=== PATIENT | female | born 1995 | race African-American/Black ===

== ENCOUNTER 2018-05-08 13:26 | Emergency (ER) | payer SELFPAY ==
[2018-05-08 13:41] VITALS: BP 140/79; PULSE 79; TEMP 98; BMI 21.7
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
[2018-05-08] MEDS ORDERED: KETOROLAC TROMETHAMINE 60 MG/2 ML VIAL IM ONE (16:15)
[2018-05-08] MEDS ORDERED: KETOROLAC TROMETHAMINE 60 MG/2 ML VIAL ONE (16:23)
== END 2018-05-08 16:30 | disposition home or self-care (01) ==
LOC: JERFT 13:26
PROC: 3E0233Z Introduction of Anti-inflammatory into Muscle, Percutaneous Approach (ICD-10-PCS; principal; 2018-05-08)
DX: S00.03XA Contusion of scalp, initial encounter (principal); S16.1XXA Strain of muscle, fascia and tendon at neck level, initial encounter; Y04.2XXA Assault by strike against or bumped into by another person, initial encounter; Y93.9 Activity, unspecified; Y92.9 Unspecified place or not applicable
CPT/HCPCS: 70450-TC; 72050-TC-FY; 99281-25

== ENCOUNTER 2019-06-23 03:30 | Inpatient (IN) | payer OTHER ==
[2019-06-23] MEDS ORDERED: ELECTROLYTE-148 SOLN 1,000 ML IV SCH ×2 (04:00→15:00)
[2019-06-23] MEDS ORDERED: PROMETHAZINE HCL 25 MG/1 ML VIAL IVPB ONE ×2 (06:11→11:30)
[2019-06-23] MEDS ORDERED: BUTORPHANOL TARTRATE 1 MG/ML VIAL IVPB ONE (06:11)
--- NOTE | 2019-06-23 06:20 | HP ---
Past Medical History - Primary Care Physician PCP:: Marga Gan - Admission Chief Complaint: 23 yrs , 40.6 weeks admitted in labor,onset LP since 2.00AM. History of Present Illness: PNC at [facility] . wt gain 55 lbs panel : A , RH not documented , , hbsag neg, rubella, pos, , quantiferon neg, , rpr nr , gc/ct neg , 1 hr gtt 100 ,, hiv neg 36 weeks cultures : gbs neg, gc/ct neg urine drug toxicity neg us by MFM , NT Screen & AFP neg . Corrected EDC by sono given as 06/17/2019 serial us done for growth . 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 No: GERD Hepatobiliary: No: Hepatitis B Renal/: No: UTI ...: 6 ...Para: 0 ...Spon : 1 ...Induced : 4 ...LMP: 08/19/18 ...EDC by Dates: 05/26/19 (Mistaken dates ) ...EDC by Sono: 06/17/19 (40.6 weeks by sono ) Heme/Onc: No: Anemia Infectious Disease: Yes: STD's (h/o chlamydia in past treated, during pregn neg , ,last checked 05/25/19). No: AIDS, HIV, Tuberculosis Psych: Yes: Anxiety, Other (h/o ADHD in past , received ssi , , no meds currently during h/o paranoia . pt was referred to [facility]) Endocrine: No: [place]'s Disease, Rohit's Disease, Diabetes Insipidus, Diabetes Mellitus, Hyperparathyroidism, Hyperthyroidism, Hypothyroidism, Osteopenia, SIADH, Other - Past Surgical History Past Surgical History: Yes: None Hx Myomectomy: No Hx Transabdominal Cerclage: No - Smoking History Smoking history: Former smoker Have you smoked in the past 12 months: Yes Aproximately how many cigarettes per day: 8 (quit during preg ) - Alcohol/Substance Use Hx Alcohol Use: No History of Substance Use: reports: Marijuana (quit before ) Home Medications - Allergies Allergies/Adverse Reactions: Allergies Allergy/AdvReac Type Severity Reaction Status Date / Time shellfish derived Allergy Severe Difficulty Verified 06/23/19 08:30 Breathing shrimp Allergy Severe Difficulty Verified 06/23/19 08:30 Breathing - Home Medications Home Medications: Ambulatory Orders Tablet 1 tab PO DAILY 06/23/19 Physical Exam - Maternity Vital Signs: Selected Entries 06/23/19 05:28 Temperature 98 F Pulse Rate 73 Blood Pressure 134/79 Weight 168 lb Constitutional: Yes: Well Nourished, Moderate Distress, Obese Eyes: Yes: WNL HENT: Yes: WNL, Normocephalic Neck: Yes: WNL Cardiovascular: Yes: WNL, Regular Rate and Rhythm Lungs: Clear to auscultation Breast(s): Yes: WNL - Abdominal Exam/OB Fundal Height: 40 Number of Fetuses: Single Presentation: Vertex Contractions: Yes Regularity: Regular (q3-4 min) Intensity: Mod/Strong Monitor Mode: External Heart Rate (range): 140 Heart Rate Location: [facility] Category: I Accelerations: Uniform Decelerations: None - Vaginal Exam/OB Vaginal Bleediing: No Speculum Exam: No Dilatation (cm): 5 Effacement (%): 90 Amniotic Membrane Status: Intact Presentation: Vertex/Position Station: -2 (-2/-1) - Physical Exam Musculoskeletal: Yes: WNL Extremities: No: Calf Tenderness Edema: LLE: 1+, RLE: 1+ Integumentary: Yes: Tattoos Deep Tendon Reflex Grade: Normal +2 ...Motor Strength: WNL Psychiatric: Yes: WNL, Alert, Oriented - Labs Lab Results: Laboratory Tests 06/23/19 06/23/19 06/23/19 05:00 05:00 05:00 WBC 11.8 H Hgb 13.3 Hct 38.2 Plt Count 200 PT with INR 10.90 INR 0.92 PTT (Actin FS) 27.5 Sodium 139 Potassium 3.8 Chloride 107 Carbon Dioxide 22 Anion Gap 10 BUN 6.8 L Creatinine 0.5 L Random Glucose 97 Calcium 8.5 Urine Protein Urine Blood Opiates Screen Methadone Screen Barbiturate Screen Phencyclidine Screen Ur Amphetamines Screen MDMA (Ecstasy) Screen Benzodiazepines Screen Cocaine Screen U Marijuana (THC) Screen HIV 1&2 Antibody Screen HIV P24 Antigen Blood Type Antibody Screen 06/23/19 06/23/19 06/23/19 05:00 05:00 07:35 WBC Hgb Hct Plt Count PT with INR INR PTT (Actin FS) Sodium Potassium Chloride Carbon Dioxide Anion Gap BUN Creatinine Random Glucose Calcium Urine Protein Urine Blood Opiates Screen Negative Methadone Screen Negative Barbiturate Screen Negative Phencyclidine Screen Negative Ur Amphetamines Screen Negative MDMA (Ecstasy) Screen Negative Benzodiazepines Screen Negative Cocaine Screen Negative U Marijuana (THC) Screen Negative HIV 1&2 Antibody Screen Negative HIV P24 Antigen Negative Blood Type A POSITIVE Antibody Screen Negative 06/23/19 07:35 WBC Hgb Hct Plt Count PT with INR INR PTT (Actin FS) Sodium Potassium Chloride Carbon Dioxide Anion Gap BUN Creatinine Random Glucose Calcium Urine Protein 1+ H Urine Blood 3+ H Opiates Screen Methadone Screen Barbiturate Screen Phencyclidine Screen Ur Amphetamines Screen MDMA (Ecstasy) Screen Benzodiazepines Screen Cocaine Screen U Marijuana (THC) Screen HIV 1&2 Antibody Screen HIV P24 Antigen Blood Type Antibody Screen Problem List - Problems (1) Post term over 40 weeks Code(s): O48.0 - POST-TERM (2) Labor established Code(s): [id number] - Assessment/Plan 23 yrs , 40.6 wks, gbs neg , in active labor Plan stadol + phnrgan for labor analgesia trial vaginal delivery
[2019-06-23 06:23] VITALS: BMI 33.9
[2019-06-23] MEDS ORDERED: DEXTROSE 5%-LACTATED RINGERS 1,000 ML IV SCH (06:30)
[2019-06-23 06:38] LABS: BASO % 0.3 % (0-2.0); EOS % 0.7 % (0-4.5); HEMATOCRIT 38.2 % (32.4-45.2); HEMOGLOBIN 13.3 GM/dL (10.7-15.3); LYMPH % 19.3 % (8-40); MCH 32.4 pg (25.7-33.7); MCHC 34.7 g/dl (32.0-36.0); MEAN CELL VOLUME 93.2 fl (80-96); MEAN PLT VOLUME 8.5 fl (7.5-11.1); MONO % 6.2 % (3.8-10.2); NEUT % 73.5 % (42.8-82.8); PLATELET COUNT 200 K/MM3 (134-434); RDW 13.8 % (11.6-15.6); WHITE BLOOD COUNT 11.8 K/mm3 (4.0-10.0)
[2019-06-23 06:53] LABS: INR 0.92 (0.83-1.09); PROTHROMBIN TIME (PATIENT) 10.9 SEC (9.7-13.0)
[2019-06-23 06:55] LABS: ACTIVATED PTT 27.5 SECONDS (25.2-36.5)
[2019-06-23 07:00] LABS: BLOOD UREA NITROGEN 6.8 mg/dL (7-18); CALCIUM 8.5 mg/dL (8.5-10.1); CREATININE 0.5 mg/dL (0.55-1.3); POTASSIUM 3.8 mmol/L (3.5-5.1)
[2019-06-23] MEDS ORDERED: BUTORPHANOL TARTRATE 1 MG/ML VIAL ONE ×3 (07:43→11:26)
[2019-06-23] MEDS ORDERED: PROMETHAZINE HCL 25 MG/1 ML VIAL ONE ×2 (07:43→11:26)
[2019-06-23] MEDS ORDERED: OXYTOCIN 30 UNITS in 0.9% NS 30 UNIT/500 ML INFUS.BAG IVPB SCH (08:45)
[2019-06-23 08:59] LABS: EPI CELLS 6.5 /HPF (0-5/HPF); HYALINE CASTS 19 /lpf (0-8); PH,URINE 6.5 (5.0-8.0); URINE APPEARANCE CLEAR; URINE BACTERIA 19.1 /hpf (NEGATIVE); URINE BILIRUBIN NEGATIVE (NEGATIVE); URINE COLOR YELLOW; URINE GLUCOSE (UA) NEGATIVE (NEGATIVE); URINE KETONE TRACE (NEGATIVE); URINE LEUK ESTERASE NEGATIVE (NEGATIVE); URINE NITRITE NEGATIVE (NEGATIVE); URINE PROTEIN 1+ (NEGATIVE); URINE UROBILINOGEN 0.2 mg/dL (0.2-1.0); URINE WBC 3 /hpf (0-5)
[2019-06-23 09:05] LABS: COCAINE, UR NEGATIVE ng/ml (CUTOFF=300); METHADONE, UR NEGATIVE ng/ml (CUTOFF=300); OPIATES, URI NEGATIVE ng/ml (CUTOFF=300); PHENCYCLIDINE,URINE NEGATIVE ng/ml (CUTOFF=25); URINE AMPHETAMINES NEGATIVE ng/ml (CUTOFF=500); URINE BARBITURATES NEGATIVE ng/ml (CUTOFF=200); URINE BENZODIAZEPINES NEGATIVE ng/ml (CUTOFF=200)
--- NOTE | 2019-06-23 09:29 | PN ---
Progress Note, Labor Vaginal Exam #1 Labor Exam Date: 06/23/19 Labor Exam Time: 09:15 Heart Rate (range): 140 Dilatation: 7 Effacement (%): 90 Amniotic Membrane Status: Ruptured (AROM , clear, moderate) Presentation: Vertex/Position Station: -1 (-1/0) Remarks: FHR cat-1 . UC q2-4 min 7.47 AM Stadol 2mg + Phenrgan 25 mg iv 8.45 AM Pitocin augmentation started Selected Entries 06/23/19 09:06 Temperature 98.1 F Pulse Rate 81 Blood Pressure 143/70 Vaginal Exam #2 Labor Exam Date: 06/23/19 Labor Exam Time: 10:30 Heart Rate (range): 140 Dilatation: 7-8 Effacement (%): 100 Amniotic Membrane Status: Ruptured Presentation: Vertex/Position Station: +1 Remarks: fhr cat-1, sometimes variable decel are noted, change of position decels are not seen UC 3 pt c/o rectal pressure pt is refrained from pushing 11.30 AM pt requesting more pain meds rx Stadol 1mg +Phenrgan 25 mg iv stat given Selected Entries 06/23/19 10:00 Temperature 98.0 F Pulse Rate 95 H Blood Pressure 135/75 Vaginal Exam #3 Labor Exam Date: 06/23/19 Labor Exam Time: 12:30 Heart Rate (range): 130 Dilatation: antlip Effacement (%): 100 Amniotic Membrane Status: Ruptured Presentation: Vertex/Position Station: +2 Remarks: fhr , loss of contact, sometimes down to 90 -100 bpm , cat-2 , position changed to rt lat position uc q 3 min pt refrained from pushing Vaginal Exam #4 Labor Exam Date: 06/23/19 Labor Exam Time: 13:10 Heart Rate (range): 140 Dilatation: 10 Effacement (%): 100 Amniotic Membrane Status: Ruptured Station: +2 (caput & mouding) Remarks: fhr cat -1, , loss of contact, [place]hr [id number], cat2 uc 2-3 min pt pushing, efforts ineffective plan : pt refrained from pushing await spontaneous descent , before encouraging to push since ext monitor, fhr loss of contact with pt moving 1.26 PM scalp electrode placed Vaginal Exam #5 Labor Exam Date: 06/23/19 Labor Exam Time: 14:45 Heart Rate (range): 130 Dilatation: 10 Effacement (%): 100 Amniotic Membrane Status: Ruptured Station: +2 (caput large, moulding) Remarks: FHR cat-1 , UC q 2 min In spite of effective pushing for >90 min , no more descent of vx is noted , capuut larger & moulding i is noted vulva & vagina swollen , , vagina very friable ,bleeding on touch Selected Entries 06/23/19 13:55 Temperature 98.0 F Pulse Rate 114 H Blood Pressure 140/83 Imp : secondary arrest of descent ( Failure to progress) Plan stop trial of labor delivery by primary LFTC/section
[2019-06-23] MEDS ORDERED: OXYTOCIN 20 UNITS in 0.9% NS 20 UNIT/1,000 ML INFUS.BAG IV ONE (10:15)
[2019-06-23 10:16] LABS: URINE RBC 60 /hpf (0-4)
[2019-06-23] MEDS ORDERED: BUTORPHANOL TARTRATE 1 MG/ML VIAL IVPUSH ONE (11:28)
[2019-06-23] MEDS ORDERED: CITRIC ACID/SODIUM CITRATE 30 ML UNIT-DOSE CUP PO ONE (14:57)
[2019-06-23] MEDS ORDERED: morphine SULFATE/PF 0.5 MG/ML (2cc Syringe - QUVA) ONE (16:11)
[2019-06-23] MEDS ORDERED: ceFAZolin SODIUM 1 GM VIAL ONE (16:24)
[2019-06-23] MEDS ORDERED: ONDANSETRON 4 MG/2 ML VIAL IVPUSH PRN (17:36)
--- NOTE | 2019-06-23 17:37 | OP ---
Operative Note - Note: Operative Date: 06/23/19 Pre-Operative Diagnosis: , 40 .6 weeks , failure of descent (failure to progress ) Operation: Primary Low Flap Transverse C/section Findings: 4.36 PM , Baby Boy, 9/9 , ROP position , Wt 7'3" , Ht 19 "' Meconium stained fluid Both tubes & ovaries normal Laborer [employer] Dr Morel in the OR Surgeon: Marga Gan Director Of Nuclear Medicine: Marianna Armstrong Anesthesiologist/AUTOMATIC OPERATOR: Lux Scott Anesthesia: Spinal Specimens Removed: cord segment for cord gas. cord blood. placenta Estimated Blood Loss (mls): 500 Drains, Volume Out (mls): 150 (guerda color, mendez out put ) Fluid Volume Replaced (mls): 1,300 (iv ancef 2gm ) Operative Report Dictated: Yes
[2019-06-23] MEDS ORDERED: METHYLERGONOVINE MALEATE 0.2 MG/1 ML AMP IM PRN (17:46)
[2019-06-23] MEDS ORDERED: IBUPROFEN 800 MG/8 ML IJ IVPB PRN (17:46)
[2019-06-23] MEDS ORDERED: oxyCODONE HCL 5 MG TABLET PO PRN (17:46)
--- NOTE | 2019-06-23 17:58 | PN ---
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
[2019-06-23] MEDS ORDERED: OXYTOCIN 20 UNITS in 0.9% NS 20 UNIT/1,000 ML INFUS.BAG IV SCH (18:00)
--- NOTE | 2019-06-23 18:15 | OP ---
DATE OF OPERATION: 06/23/2019 PREOPERATIVE DIAGNOSES: 40.6 weeks, failure of progress. OPERATION DONE: Primary low flap transverse section. SURGEON: Marga Gan MD DEPUTY SHERIFF LIEUTENANT: Marianna Armstrong MD ANESTHESIOLOGIST: Lux Scott MD ANESTHESIA: Spinal. FINDINGS: This is a 23-year-old 6, para 0-0-5-0 who is 40.6 weeks' gestation who was admitted in labor. She was fully dilated and pushing for more than 2 hours, and there was no more descent noted beyond 2+ station. Large caput & moulding kept increasing. Vulva and vagina were also getting edematous, and vagina was very friable & bleeding on touch ,so it was decided to abandon trial of labor and delivery by section. DESCRIPTION OF PROCEDURE: Patient is taken to the operating room table, and before that, abdomen was shaved, prepped. Spear catheter was placed, and SCD stockings were given. She was taken to the operating room table, and spinal anesthesia was given. She was placed in supine position. Abdomen was painted and draped in the usual manner. Pfannenstiel incision was made in skin, subcutaneous tissue. Anterior rectus sheath was incised transversely. Bleeding points were clamped and cauterized. Rectus muscles were from the rectus sheath and then peritoneal peritoneum was opened vertically. Lower flap by the peritoneum was incised transversely. Bladder was pushed down, and the lower uterine segment was incised transversely and extended transversely. Amniotic fluid was meconium. The baby was delivered from ROP position at 4:36 PM. Baby's Apgars were 9,9. Immediate suction at the incision was done of the nasal and oral and then the rest of the baby was delivered. Baby was handed over to the hogshead packer, Dr. Morel. Cord was clamped. The cord blood was collected before that. Cord segment also was cut for the cord blood gases. Placenta was removal completely with the membranes. Baby's weight was 7.3 ounces. Uterine cavity was cleaned. Uterine incision was closed in 2 layers, the 1st layer was a continuous, locking with a Biosyn 0 suture, 2nd was a continuous, intermittent, locking with a Biosyn 0 suture. Hemostasis was verified, and the bladder peritoneum was closed with a Biosyn 0 suture. Both tubes and ovaries were normal. Irrigation was done. The sponge, instrument, needle count was correct, and the closure at the abdomen was done. Parietal peritoneum was closed with a Vicryl suture. Muscles were approximated together with a Vicryl 0 suture, interrupted sutures were taken in muscles. Hemostasis was achieved underneath the rectus sheath flap then the rectus sheath was closed with a Vicryl 0 suture. Continuous sutures were taken. Hemostasis was checked in subcutaneous tissue and then the subcutaneous tissue was approximated with interrupted sutures with Biosyn single suture. The skin was approximated with the julius. Patient tolerated procedure well. Pressure dressing was given. Blood clots were removed from the vagina. Pressure dressing was applied. The approximate EBL was 500 mL, and urine output intraoperatively was 150 mL. It was guerda color. Patient was transferred to the recovery room in stable condition. She received 2 g of IV Ancef prior to the incision, and she received 1300 IV solution. Celsa [id number] MTDD
[2019-06-23] MEDS: CEFAZOLIN 1 GM/D5W 1 GM/50 ML BAG IVPB SCH (23:25)
[2019-06-24] MEDS: CEFAZOLIN 1 GM/D5W 1 GM/50 ML BAG IVPB SCH ×3 (02:23→17:40)
--- NOTE | 2019-06-24 06:58 | PN ---
Post Progress Note - Subjective Subjective: Pain controlled. Spear in place. No ambulation yet. No flatus/BM. No N/V. Post Day: 1 Type of Delivery: Primary C/S Vital Signs: Vital Signs Temperature 98.3 F 06/24/19 06:00 Pulse Rate 93 H 06/24/19 06:00 Respiratory Rate 20 06/24/19 06:00 Blood Pressure 110/60 06/24/19 06:00 O2 Sat by Pulse Oximetry (%) 98 06/23/19 18:50 Uterus: Yes: Fundus below umbilicus Incision: Yes: Dressing dry and intact, Tiffany intact Abdomen/GI: Yes: Abdomen soft, Tolerating PO Lochia: Yes: Rubra Lochia, amount: Small Extremities: Yes: Calves non-tender - Labs Labs: CBC WBC 11.8 K/mm3 (4.0-10.0) H 06/23/19 05:00 RBC 4.10 M/mm3 (3.60-5.2) 06/23/19 05:00 Hgb 13.3 GM/dL (10.7-15.3) 06/23/19 05:00 Hct 38.2 % (32.4-45.2) 06/23/19 05:00 MCV 93.2 fl (80-96) 06/23/19 05:00 MCH 32.4 pg (25.7-33.7) 06/23/19 05:00 MCHC 34.7 g/dl (32.0-36.0) 06/23/19 05:00 RDW 13.8 % (11.6-15.6) 06/23/19 05:00 Plt Count 200 K/MM3 (134-434) 06/23/19 05:00 MPV 8.5 fl (7.5-11.1) 06/23/19 05:00 Absolute Neuts (auto) 8.7 K/mm3 (1.5-8.0) H 06/23/19 05:00 Neutrophils % 73.5 % (42.8-82.8) 06/23/19 05:00 Lymphocytes % 19.3 % (8-40) 06/23/19 05:00 Monocytes % 6.2 % (3.8-10.2) 06/23/19 05:00 Eosinophils % 0.7 % (0-4.5) 06/23/19 05:00 Basophils % 0.3 % (0-2.0) 06/23/19 05:00 Nucleated RBC % 0 % (0-0) 06/23/19 05:00 Assessment/Plan 23yo P1 s/p PLTCS, POD#1 Routine PP care F/U AM CBC PO pain control OOB, ambulate Anticipate d/c to home by POD#4 Gen Armstrong MD
[2019-06-24 07:54] LABS: BASO % 0.3 % (0-2.0); EOS % 0.1 % (0-4.5); HEMATOCRIT 31.5 % (32.4-45.2); HEMOGLOBIN 11.1 GM/dL (10.7-15.3); MCH 32.7 pg (25.7-33.7); MCHC 35.3 g/dl (32.0-36.0); MEAN CELL VOLUME 92.7 fl (80-96); MEAN PLT VOLUME 8.3 fl (7.5-11.1); MONO % 7.3 % (3.8-10.2); NEUT % 81.3 % (42.8-82.8); PLATELET COUNT 186 K/MM3 (134-434); RDW 13.6 % (11.6-15.6); WHITE BLOOD COUNT 16.2 K/mm3 (4.0-10.0)
--- NOTE | 2019-06-24 09:01 | PN ---
Progress Note (short form) - Note Progress Note: Anesthesiology Post-op POD#1 s/p C/S under spinal with Duramorph. Pt. is awake and comfortable in bed. She has no complaints and is able to move her legs. VSS. 23 y.o. woman with stable post-operative course. Continue management as per primary team.
[2019-06-24] MEDS: SIMETHICONE 80 MG TAB.CHEW (FP) PO PRN ×3 (10:15→22:20)
[2019-06-24] MEDS: ENOXAPARIN NA (PORCINE) 40 MG/0.4 ML DISP.SYRIN SQ SCH (10:16)
[2019-06-24] MEDS: ACETAMINOPHEN 325 MG TABLET (FP) PO PRN ×2 (17:40→22:20)
[2019-06-24] MEDS: IBUPROFEN 600 MG TABLET (FP) PO PRN ×2 (17:40→22:21)
[2019-06-24] MEDS ORDERED: BISACODYL 10 MG SUPP.RECT RC PRN (17:47)
[2019-06-24] MEDS: SENNOSIDES/DOCUSATE COMBO (SENNA PLUS) TABLET (UD) PO PRN (22:21)
--- NOTE | 2019-06-25 06:27 | PN ---
Progress Note (short form) - Note Progress Note: pod 2 s/p c/s , doing well, passing gas , ambulating CBC, BMP 06/24/19 07:05 06/23/19 05:00 Last Vital Signs Temp Pulse Resp BP Pulse Ox 97.3 F L 83 20 111/67 98 06/24/19 20:00 06/24/19 20:00 06/24/19 20:00 06/24/19 20:00 06/23/19 18:50 abdomen soft, no distension, no cva uterus firm, non tender lochia mild no calf tenderness plan ambulate , cbc in am pain management
[2019-06-25] MEDS: SIMETHICONE 80 MG TAB.CHEW (FP) PO PRN (08:46)
[2019-06-25] MEDS: FERROUS SO4 325 MG TABLET (FP) PO SCH ×2 (08:46→18:14)
[2019-06-25] MEDS: IBUPROFEN 600 MG TABLET (FP) PO PRN ×3 (08:47→21:49)
[2019-06-25] MEDS: ACETAMINOPHEN 325 MG TABLET (FP) PO PRN ×3 (08:47→21:49)
[2019-06-25] MEDS: ENOXAPARIN NA (PORCINE) 40 MG/0.4 ML DISP.SYRIN SQ SCH (10:42)
[2019-06-25] MEDS: PRENATAL VITAMINS W/ FOLIC ACID TABLET (FP) PO SCH (10:42)
--- NOTE | 2019-06-25 13:28 | DS ---
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 No: CVA Tenderness - Left, CVA Tenderness - Right ....Post : Yes: Uterus firm, Moderate lochia rubra (lochia small amount). No: Uterus tender Breast(s): Yes: WNL (breast & botttle feeding , soft , not engorged) Musculoskeletal: Yes: WNL Extremities: Yes: WNL. No: Calf Tenderness Edema: Yes Edema: LLE: 1+, RLE: 1+ Integumentary: Yes: WNL, Tattoos Wound/Incision: Yes: Clean/Dry, Well Approximated, Tiffany Intact, Open to air. No: Draining, Reddened, Bleeding Neurological: Yes: WNL ...Motor Strength: WNL Psychiatric: Yes: WNL, Alert, Oriented Labs: CBC, BMP 06/24/19 07:05 06/23/19 05:00 Laboratory Tests 06/26/19 11:22 WBC 9.5 Hgb 11.0 Hct 32.6 Plt Count 230 D Neutrophils % 73.3 Delivery - Delivery Section: Primary, Low Flap Transverse (Indication : 40.6 weeks,Failure of descent ( Failure to progress )) Type of Anesthesia: Spinal EBL (cc): 500 (mendez output 150 ml guerda color ) Delivery, Single - Stages of Labor Date 1st Stage Initiatied: 06/23/19 Time 1st Stage Initiated: 02:00 Date 2nd Stage Initiated: 06/23/19 Time 2nd Stage Initiated: 13:00 Date of Delivery: 06/23/19 Time of Delivery: 16:36 Time Placenta Delivered: 16:38 - Condition of Pageant Director/Cart Attendant Present: Yes Name: Lluvia Morel Infant Gender: Male Weight: 7 lb 3 oz Position: Right, OP Total Hours ROM (Hrs/Mins): 7 hours 24 minutes mecon - 1 Minute Total Score: 9 5 Minutes Total Score: 9 - [place] Feeding Plan Initial Plan: Elected not to breastfeed exclusively throughout hospitalization Remarks - Remarks Remarks: 23 yrs , 40.6 weeks in labor [facility] Intrapartum labor analgesia stadol + phenrgan x2 doses after full dilatation , & pushing , failure of descent intraop course uneventful post op course uneventful . pt discharged by Dr Mondragon on 06/26/19 she will rtc for tiffany removal Discharge Summary Problems reviewed: Yes Reason For Visit: LABOR ADMIT Current Active Problems Delivery by emergency section (Acute) Failure of descent in labor, delivered, current hospitalization (Acute) Labor established (Acute) Post term over 40 weeks (Acute) Procedures: Principal: Primary LFTC/Section Hospital Course: uneventful Health Concerns: none Plan of Treatment: ct Vit & Pain meds Goals: mother & infant well being Condition: Stable - Instructions Diet, Activity, Other Instructions: Post Instructions DIET: Continue good diet high in protein, calcium, and iron rich foods. Drink at least eight (8) glasses of water daily in addition to other fluids. ___ Regular diet MEDICATIONS: Continue vitamins and iron as previously directed. Motrin and Tylenol may be taken for minor discomfort. ACTIVITY: Mild to moderate exercise may be started in two (2) weeks. Take frequent rest periods. Resume normal activity after six (6) week check up. WOUND CARE OF OPERATIVE SITE: Continue use of perineal bottle until vaginal discharge stops. Keep area clean. Shower daily. Keep abdominal wound dry. Report any drainage or redness to physician. Tub baths, tampons and douches are not permitted for [address] Breast feeding & or Bottle feeding BREAST CARE: (For those that are not ): If engorgement occurs: Wear tight fitting bra. Take Tylenol or Motrin for pain. Apply cold packs (ice in bags to each breast ) FAMILY PLANNING: There are many control alternatives to pursue and they should be discussed at your first office visit. You may resume sexual activity after your six (6) week check up. (Remember, breast feeding is not a contraceptive) NEXT PHYSICIAN APPOINTMENT: Be certain to call for a one (1 ) week appointment, unless otherwise directed. RTC FRIDAY for Tiffany Removal , at [address] [place] [address] Call [phone] Call Clinic or got to Emergency Dept if you have any of the following: Heavy vaginal bleeding Painful urination Leg pain Unusual odor noted to vaginal bleeding High fever Red streaking noted on breast Referrals: Kenyatta Mcdowell MD [Primary Care Provider] - Marga Gan MD [Staff Physician] - Disposition: HOME - Home Medications Comprehensive Discharge Medication List: Ambulatory Orders Tablet 1 tab PO DAILY 06/23/19 Acetaminophen [Tylenol .Regular Strength -] 500 mg PO Q4H PRN #30 tablet Ferrous Sulfate [Feosol] 325 mg PO BIDWM #30 tab 06/25/19 Ibuprofen [Motrin -] 600 mg PO Q4H PRN #30 tablet 06/25/19 Vitamins (Sjr) - 1 tab PO DAILY tablet 06/25/19 Prescription Drug Monitoring Program (I-STOP) results: I-STOP reviewed and no issues identified (will rtc on Friday for tiffany removal)
[2019-06-25] MEDS: SENNOSIDES/DOCUSATE COMBO (SENNA PLUS) TABLET (UD) PO PRN (21:50)
[2019-06-25 23:55] VITALS: TEMP 98
--- NOTE | 2019-06-26 08:18 | PN ---
Post Progress Note - Subjective Subjective: Ambulating, tolerating PO, lochia decreased,baby doing well. Type of Delivery: Primary C/S Vital Signs: Vital Signs Temperature 98 F 06/25/19 22:00 Pulse Rate 72 06/25/19 22:00 Respiratory Rate 18 06/25/19 22:00 Blood Pressure 120/62 06/25/19 22:00 O2 Sat by Pulse Oximetry (%) 98 06/23/19 18:50 Breast Exam: Yes: Other (deferred) Uterus: Yes: Fundus Firm Incision: Yes: Tiffany intact Abdomen/GI: Yes: Abdomen soft Lochia, amount: Moderate Extremities: Yes: Calves non-tender Perineum: Yes: Intact Activity: Ambulating - Labs Labs: CBC WBC 16.2 K/mm3 (4.0-10.0) H 06/24/19 07:05 RBC 3.40 M/mm3 (3.60-5.2) L 06/24/19 07:05 Hgb 11.1 GM/dL (10.7-15.3) 06/24/19 07:05 Hct 31.5 % (32.4-45.2) L D 06/24/19 07:05 MCV 92.7 fl (80-96) 06/24/19 07:05 MCH 32.7 pg (25.7-33.7) 06/24/19 07:05 MCHC 35.3 g/dl (32.0-36.0) 06/24/19 07:05 RDW 13.6 % (11.6-15.6) 06/24/19 07:05 Plt Count 186 K/MM3 (134-434) 06/24/19 07:05 MPV 8.3 fl (7.5-11.1) 06/24/19 07:05 Absolute Neuts (auto) 13.1 K/mm3 (1.5-8.0) H 06/24/19 07:05 Neutrophils % 81.3 % (42.8-82.8) 06/24/19 07:05 Lymphocytes % 11.0 % (8-40) D 06/24/19 07:05 Monocytes % 7.3 % (3.8-10.2) 06/24/19 07:05 Eosinophils % 0.1 % (0-4.5) D 06/24/19 07:05 Basophils % 0.3 % (0-2.0) 06/24/19 07:05 Nucleated RBC % 0 % (0-0) 06/24/19 07:05 Assessment/Plan PPD/POD # 3 in stable condition, PP/Post-op precautions discussed. -D/C home -F/U within a week for incision check
[2019-06-26 09:17] VITALS: BP 128/65; PULSE 70
[2019-06-26] MEDS: PRENATAL VITAMINS W/ FOLIC ACID TABLET (FP) PO SCH (10:02)
[2019-06-26] MEDS: FERROUS SO4 325 MG TABLET (FP) PO SCH (10:02)
[2019-06-26] MEDS: ENOXAPARIN NA (PORCINE) 40 MG/0.4 ML DISP.SYRIN SQ SCH (10:02)
[2019-06-26 11:39] LABS: BASO % 0.2 % (0-2.0); EOS % 1.4 % (0-4.5); HEMATOCRIT 32.6 % (32.4-45.2); LYMPH % 20.1 % (8-40); MCHC 33.8 g/dl (32.0-36.0); MEAN CELL VOLUME 94.7 fl (80-96); MEAN PLT VOLUME 8.2 fl (7.5-11.1); NEUT % 73.3 % (42.8-82.8); PLATELET COUNT 230 K/MM3 (134-434); RBC 3.44 M/mm3 (3.60-5.2); RDW 13.7 % (11.6-15.6); WHITE BLOOD COUNT 9.5 K/mm3 (4.0-10.0)
--- NOTE | 2019-06-28 11:29 | PATH ---
Surgical Pathology Report Patient Name: ANDRA NEWBERRY Med. Rec. 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 Specimen(s) Received PLACENTA Clinical History , induced x 4, spontaneous x1, failure to descend Final Diagnosis PLACENTA: THIRD TRIMESTER PLACENTA WITH FOCAL ACUTE STEM VESSEL VASCULITIS AND ACUTE CHORIOAMNIONITIS. TRIVASCULAR CORD. Electronically Signed Shaye Geller M.D. Gross Description The specimen is received fresh labeled placenta and is a 441 gram, 15 x15 x 2.9cm. placenta with attached membranes and umbilical cord. The attached membranes are glistening, translucent, and insert marginally. The umbilical cord measures 13 cm. in length and averages 1.2 cm. in diameter. The cord inserts eccentrically, 2.5centimeter to the nearest margin. No true knots or strictures are identified. Cut surface of the umbilical cord reveals 3 vessels. Sectioning reveals red-brown, spongy parenchyma. No lesions are identified. [place] [employer] sections are submitted in three cassettes as follows: 1- membrane rolls and umbilical cord; 2-3- full thickness sections of placenta KWS/06/24/2019 sulki/06/24/2019
== END 2019-06-26 12:35 | disposition home or self-care (01) | DRG 540 ==
LOC: JDEL 03:30 → JLDR 05:00 → J3W 19:56
PROVIDERS: ADMIT Obstetrics & Gynecology; ATTEND Obstetrics & Gynecology
PROC: 10D00Z1 Extraction of Products of Conception, Low, Open Approach (ICD-10-PCS; principal; 2019-06-23)
DX: O62.1 Secondary uterine inertia (principal); O48.0 Post-term pregnancy; O99.213 Obesity complicating pregnancy, third trimester; Z3A.40 40 weeks gestation of pregnancy; O41.1230 Chorioamnionitis, third trimester, not applicable or unspecified; Z37.0 Single live birth
CPT/HCPCS: 36415; 36600; 80048; 80074; 80307; 81003; 82803; 85025; 85610; 85730; 86593; 86850; 86900; 86901; 87389; 87522; 88307-TC; 94010

== ENCOUNTER 2022-08-09 14:37 | Emergency (ER) | payer OTHER ==
[2022-08-09 14:53] VITALS: BP 97/56; BMI 21.9
[2022-08-09] MEDS ORDERED: guaiFENesin 200 MG/10 ML 10 ML UNIT-DOSE CUPS PO ONE (15:29)
[2022-08-09] MEDS ORDERED: ACETAMINOPHEN 325 MG TABLET (FP) PO ONE (15:29)
[2022-08-09] MEDS ORDERED: guaiFENesin/D-METHORPHAN HB 10 ML UNIT-DOSE CUPS ONE (16:10)
[2022-08-09] MEDS ORDERED: ACETAMINOPHEN 325 MG TABLET (FP) ONE (16:10)
[2022-08-09 17:32] VITALS: PULSE 84; RESP 18; TEMP 98.9
== END 2022-08-09 17:49 | disposition home or self-care (01) ==
LOC: JER 14:37
DX: B34.9 Viral infection, unspecified (principal)
CPT/HCPCS: 0241U-QW; 71046-TC-FY; 99284-25

== ENCOUNTER 2023-01-02 09:39 | Emergency (ER) | payer OTHER ==
[2023-01-02 09:56] VITALS: BP 122/75; PULSE 74; RESP 18; TEMP 97.9; BMI 25.2
[2023-01-02] MEDS ORDERED: SODIUM CHLORIDE FOR INHALATION 3 ML VIAL.NEB IH ONE (10:45)
[2023-01-02] MEDS ORDERED: ALBUTEROL SO4 2.5/IPRATROPIUM 0.5 INH SOL 3 ML VIAL.NEB. NEB ONE ×2 (10:45→11:07)
[2023-01-02] MEDS ORDERED: ALBUTEROL SO4 0.083% IH SOL 2.5 MG/3 ML VIAL.NEB. NEB ONE (11:03)
== END 2023-01-02 12:12 | disposition home or self-care (01) ==
LOC: JERFT 09:39
PROC: 3E0F7GC Introduction of Other Therapeutic Substance into Respiratory Tract, Via Natural or Artificial Opening (ICD-10-PCS; principal; 2023-01-02)
DX: J06.9 Acute upper respiratory infection, unspecified (principal); R09.81 Nasal congestion; R05.1 Acute cough; R09.89 Other specified symptoms and signs involving the circulatory and respiratory systems; R68.83 Chills (without fever); R06.02 Shortness of breath; Z20.822 Contact with and (suspected) exposure to COVID-19
CPT/HCPCS: 0241U-QW; 71046-TC-FY; 93005; 93010; 99285-25

== ENCOUNTER 2024-05-27 08:58 | Emergency (ER) | payer OTHER ==
[2024-05-27 09:13] VITALS: BP 115/71; PULSE 86; RESP 19; TEMP 98.4; BMI 25.0
[2024-05-27] MEDS ORDERED: ACETAMINOPHEN 325 MG TABLET (FP) ONE (09:23)
[2024-05-27] MEDS: ACETAMINOPHEN 325 MG TABLET (FP) PO ONE (09:25)
[2024-05-27 10:13] LABS: THROAT:GRP A STREP NOT DETECTED (NOTDETECTED)
== END 2024-05-27 10:34 | disposition home or self-care (01) ==
LOC: JERFT 08:58
DX: R05.9 Cough, unspecified (principal); R09.81 Nasal congestion; M79.10 Myalgia, unspecified site; J06.9 Acute upper respiratory infection, unspecified; B97.89 Other viral agents as the cause of diseases classified elsewhere; Z20.822 Contact with and (suspected) exposure to COVID-19
CPT/HCPCS: 0241U-QW; 87651; 99283-25

== ENCOUNTER 2024-09-26 10:50 | Emergency (ER) | payer OTHER ==
[2024-09-26 11:01] VITALS: BP 101/63; PULSE 61; RESP 18; TEMP 99.4; BMI 25.4
[2024-09-26] MEDS ORDERED: ACETAMINOPHEN 500 MG TABLET (FP) ONE (12:01)
[2024-09-26] MEDS: ACETAMINOPHEN 500 MG TABLET (FP) PO ONE (12:05)
== END 2024-09-26 12:25 | disposition home or self-care (01) ==
LOC: JER 10:50
DX: J10.1 Influenza due to other identified influenza virus with other respiratory manifestations (principal); M79.10 Myalgia, unspecified site; R09.81 Nasal congestion; R68.83 Chills (without fever); J06.9 Acute upper respiratory infection, unspecified; Z20.822 Contact with and (suspected) exposure to COVID-19
CPT/HCPCS: 0241U-QW; 99283-25

== ENCOUNTER 2025-06-27 09:32 | Emergency (ER) | payer OTHER ==
[2025-06-27 09:56] VITALS: BP 98/63; PULSE 100; RESP 20; TEMP 98.1; BMI 24.2
[2025-06-27] MEDS ORDERED: ALBUTEROL SO4 2.5/IPRATROPIUM 0.5 INH SOL 3 ML VIAL.NEB. NEB ONE (10:03)
[2025-06-27] MEDS: ALBUTEROL SO4 2.5/IPRATROPIUM 0.5 INH SOL 3 ML VIAL.NEB. NEB SCH (10:05)
[2025-06-27] MEDS: DEXAMETHASONE 4 MG TABLET (FP) PO ONE (11:14)
[2025-06-27] MEDS ORDERED: DEXAMETHASONE SOD PHOSPHATE 10 MG/1 ML VIAL ONE (11:15)
[2025-06-27] MEDS: ACETAMINOPHEN 500 MG TABLET (FP) PO ONE (11:59)
== END 2025-06-27 13:45 | disposition home or self-care (01) ==
LOC: JER 09:32
PROC: 3E0F7GC Introduction of Other Therapeutic Substance into Respiratory Tract, Via Natural or Artificial Opening (ICD-10-PCS; principal; 2025-06-27)
PROC: 3E0F7GC Introduction of Other Therapeutic Substance into Respiratory Tract, Via Natural or Artificial Opening (ICD-10-PCS; 2025-06-27)
DX: J45.909 Unspecified asthma, uncomplicated (principal); R06.02 Shortness of breath; R05.9 Cough, unspecified; R19.7 Diarrhea, unspecified; R11.10 Vomiting, unspecified; R42 Dizziness and giddiness
CPT/HCPCS: 93005; 93010; 94640; 99284-25